=== PATIENT | female | born 1935 | race Caucasian/White ===

== ENCOUNTER 2016-08-25 08:51 | Inpatient (IN) | payer MEDICARE ==
[~2016-08-25] VITALS: Ht 157.5 cm; Wt 44.5 kg
[~2016-08-25 08:51] MED LIST: ALOE VESTA226 GM TOP; ARICEPT5 MG PO; ASPIRIN81 MG PO; BROVANA15 MCG/2 M INH; BYSTOLIC10 MG PO; BYSTOLIC5 MG PO; COZAAR100 MG PO; IMODIUM2 MG PO; LEVAQUIN250 MG PO; MELATONIN5 MG PO; NORVASC5 MG PO; PRAVACHOL40 MG PO; PREDNISONE10 MG PO; PULMICORT0.5 MG/2 M INH; TRIAMCINOLONE A15 G1 TOP; TYLENOL500 MG PO
[2016-08-25] MEDS ORDERED: ASPIRIN81 MG PO (09:50)
[2016-08-25] MEDS ORDERED: DETROL LA4 MG PO (09:50)
[2016-08-25] MEDS ORDERED: BROVANA15 MCG/2 M INH (09:51)
[2016-08-25] MEDS ORDERED: PULMICORT0.5 MG/2 M INH (09:51)
[2016-08-25] MEDS ORDERED: TRIAMCINOLONE A15 G1 TOP (09:54)
[2016-08-25] MEDS ORDERED: PRAVACHOL40 MG PO (09:55)
[2016-08-25] MEDS ORDERED: ARICEPT5 MG PO (09:56)
[2016-08-25] MEDS ORDERED: BYSTOLIC5 MG PO (09:56)
[2016-08-25] MEDS ORDERED: NORVASC5 MG PO (09:56)
[2016-08-25] MEDS ORDERED: TYLENOL325 MG PO (14:31)
[2016-08-25] MEDS ORDERED: MILK OF MAGNESI30 ML PO (14:32)
[2016-08-27] MEDS ORDERED: PROTONIX40 MG PO (08:53)
== END 2016-08-27 11:00 | disposition short-term general hospital (02) | DRG 378 ==
LOC: ER 08:51 → IP 11:00 → ER 11:00 → IP 08-27 11:00
PROVIDERS: ADMIT Family Medicine
PROC: 30233N1 Transfusion of Nonautologous Red Blood Cells into Peripheral Vein, Percutaneous Approach (ICD-10-PCS; principal; 2016-08-25)
DX: K92.1 Melena (principal); D62 Acute posthemorrhagic anemia; F03.90 Unspecified dementia, unspecified severity, without behavioral disturbance, psychotic disturbance, mood disturbance, and anxiety; J44.9 Chronic obstructive pulmonary disease, unspecified; Z79.82 Long term (current) use of aspirin

== ENCOUNTER → 2016-09-11 | Outpatient (CLI) | payer MEDICARE ==
[~2016-09-11] MED LIST changes: +DETROL LA4 MG PO; +MILK OF MAGNESI30 ML PO; +PROTONIX40 MG PO; +TYLENOL325 MG PO
== END | disposition short-term general hospital (02) ==
LOC: CLCARD
DX: N18.9 Chronic kidney disease, unspecified (principal); I73.9 Peripheral vascular disease, unspecified; I12.9 Hypertensive chronic kidney disease with stage 1 through stage 4 chronic kidney disease, or unspecified chronic kidney disease; J44.9 Chronic obstructive pulmonary disease, unspecified; R91.8 Other nonspecific abnormal finding of lung field; D64.9 Anemia, unspecified; F03.90 Unspecified dementia, unspecified severity, without behavioral disturbance, psychotic disturbance, mood disturbance, and anxiety; I42.9 Cardiomyopathy, unspecified